=== PATIENT | female | born 2000 | race Caucasian/White ===

== ENCOUNTER 2021-03-04 13:05 | Emergency (ER) | payer OTHER ==
[2021-03-04] MEDS ORDERED: IBUPROFEN 800 MG TABLET PO STA (13:29)
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
[2021-03-04 14:17] VITALS: BP 135/68
== END 2021-03-04 14:20 | disposition home or self-care (01) ==
LOC: ED 13:05
DX: M25.531 Pain in right wrist (principal); M25.511 Pain in right shoulder; V43.52XA Car driver injured in collision with other type car in traffic accident, initial encounter; Y92.410 Unspecified street and highway as the place of occurrence of the external cause
CPT/HCPCS: 99282; A9270